=== PATIENT | male | born 1990 | race Hispanic/Latino ===

== ENCOUNTER 2017-06-16 12:24 | Emergency (ER) | payer SELFPAY ==
[2017-06-16] MEDS ORDERED: METHYLPREDNISOLONE SOD SUCC 125MG/2ML VIAL ONE (13:22)
[2017-06-16] MEDS ORDERED: IPRATROPIUM/ALBUTEROL SULFATE 3 ML SOLUTION IH ONE (13:33)
== END 2017-06-16 15:08 | disposition home or self-care (01) ==
LOC: EDH 12:24
DX: J20.9 Acute bronchitis, unspecified (principal)
CPT/HCPCS: 71046; 94640; 96372; 99284; J2930

== ENCOUNTER 2017-06-21 15:38 | Emergency (ER) | payer SELFPAY ==
[2017-06-21] MEDS ORDERED: KETOROLAC TROMETHAMINE 30MG/ML ONE (16:09)
== END 2017-06-21 16:49 | disposition home or self-care (01) ==
LOC: EDH 15:38
DX: S29.011A Strain of muscle and tendon of front wall of thorax, initial encounter (principal); J40 Bronchitis, not specified as acute or chronic; X58.XXXA Exposure to other specified factors, initial encounter; Y93.89 Activity, other specified; Y92.89 Other specified places as the place of occurrence of the external cause; Y99.8 Other external cause status
CPT/HCPCS: 71046; 96372; 99284; J1885